=== PATIENT | male | born 1990 | race Caucasian/White ===

== ENCOUNTER 2017-05-18 08:09 | Emergency (ER) | payer MEDICAID ==
[2017-05-18] MEDS ORDERED: fentaNYL 100 MCG/2 ML SDV IVPUSH ONE ×2 (09:15→12:06)
[2017-05-18] MEDS ORDERED: Sodium Chloride 0.9% 1,000 ML IV SCH (09:15)
[2017-05-18] MEDS ORDERED: Ondansetron 4 MG/2 ML SDV IVPUSH ONE (09:18)
[2017-05-18 09:21] LABS: CHLORIDE,CL 105 mmol/L (98-107); SODIUM,NA 141 mmol/L (136-145)
--- NOTE | 2017-05-18 09:50 | EDM.PDOC ---
ED HPI GENERAL MEDICAL PROBLEM - General Chief Complaint: Gastrointestinal Problem Stated Complaint: RLQ abd pain Time Seen by Provider: 05/18/17 08:30 Source of Information: Reports: Patient History Limitations: Reports: No Limitations - History of Present Illness INITIAL COMMENTS - FREE TEXT/NARRATIVE: Patient is a 26-year-old who was seen in emergency room with chief complaint of right lower quadrant pain patient states that it woke him up this morning and has been constant to the right lower quadrant he had similar pain but not as intense about a months ago with a negative CAT scan at that time Onset: Today Duration: Hour(s): Location: Reports: Abdomen Quality: Reports: Sharp (Constant) Severity: Moderate Improves with: Reports: None Worsens with: Reports: Movement Context: Reports: Sick Contact Right Lower Abdominal Pain Score (Numeric/FACES): 9 - Related Data Allergies Allergy/AdvReac Type Severity Reaction Status Date / Time amoxicillin Allergy Hives Verified 05/18/17 08:11 cefazolin Allergy Hives Verified 05/18/17 08:11 Penicillins Allergy Hives Verified 05/18/17 08:11 Home Meds: Home Meds Acetaminophen/Diphenhydramine [Tylenol Pm Ex-Strength Caplet] 1 - 2 tab PO BEDTIME PRN 10/06/15 [History] Past Medical History Musculoskeletal History: Reports: Fracture Neurological History: Reports: Concussion Psychiatric History: Reports: Depression, PTSD - Past Surgical History HEENT Surgical History: Reports: Myringotomy w Tube(s), Tonsillectomy Musculoskeletal Surgical History: Reports: Other (See Below) Social & Family History - Tobacco Use Smoking Status *Q: Current Some Day Smoker Years of Tobacco use: 8 Packs/Tins Daily: 0.3 Second Hand Smoke Exposure: Yes - Caffeine Use Caffeine Use: Reports: Coffee, Energy Drinks, Soda Caffeine Use Comment: Drinks coffee more than energy drinks and pop. - Recreational Drug Use Recreational Drug Use: No ED ROS GENERAL - Review of Systems Review Of Systems: See Below Constitutional: Reports: Weight Loss HEENT: Reports: No Symptoms Respiratory: Reports: No Symptoms Cardiovascular: Reports: No Symptoms Endocrine: Reports: No Symptoms GI/Abdominal: Reports: No Symptoms : Reports: No Symptoms Musculoskeletal: Reports: No Symptoms Skin: Reports: No Symptoms Neurological: Reports: No Symptoms Psychiatric: Reports: No Symptoms Hematologic/Lymphatic: Reports: No Symptoms Immunologic: Reports: No Symptoms ED EXAM, GENERAL - Physical Exam Exam: See Below Exam Limited By: No Limitations General Appearance: Alert, WD/WN, Moderate Distress Eye Exam: Bilateral Eye: EOMI, PERRL Ears: Normal External Exam, Normal Canal, Hearing Grossly Normal, Normal TMs Nose: Normal Inspection, Normal Mucosa, No Blood Throat/Mouth: Normal Inspection, Normal Lips, Normal Teeth, Normal Gums, Normal Oropharynx, Normal Voice, No Airway Compromise Head: Atraumatic, Normocephalic Neck: Normal Inspection, Supple, Non-Tender, Full Range of Motion Respiratory/Chest: No Respiratory Distress, Lungs Clear, Normal Breath Sounds, No Accessory Muscle Use, Chest Non-Tender Cardiovascular: Normal Peripheral Pulses, Regular Rate, Rhythm, No Edema, No Gallop, No JVD, No Murmur, No Rub GI/Abdominal: Guarding (ruq), Rebound (RUQ), Tender (RUQ) Back Exam: Normal Inspection, Full Range of Motion, NT Extremities: Normal Inspection, Normal Range of Motion, Non-Tender, Normal Capillary Refill, No Pedal Edema Neurological: Alert, Oriented, CN II-XII Intact, Normal Cognition, Normal Reflexes Psychiatric: Normal Affect, Normal Mood Skin Exam: Warm, Dry, Intact, Normal Color, No Rash Course - Vital Signs Last Recorded V/S: Last Vital Signs Temp 97.9 F 05/18/17 08:13 Pulse 81 05/18/17 10:41 Resp 17 05/18/17 10:41 BP 128/70 05/18/17 10:41 Pulse Ox 99 05/18/17 10:41 - Orders/Labs/Meds Orders: Active Orders 24 hr Category Date Time Status Abdomen Pelvis w Cont [CT] Stat Exams 05/18/17 09:05 Taken Sodium Chloride 0.9% [Normal Saline] 1,000 ml Med 05/18/17 09:15 Active IV ASDIRECTED metroNIDAZOLE/Normal Saline [Flagyl 500 MG in NS 100 ML Med 05/18/17 11:04 Ordered ] 500 mg Premix Bag 1 bag IV ONETIME Medication Orders Sodium Chloride (Normal Saline) 1,000 mls @ 250 mls/hr IV ASDIRECTED KIRILL Last Admin: 05/18/17 09:11 Dose: 250 mls/hr Metronidazole 500 mg/ Premix 100 mls @ 100 mls/hr IV ONETIME ONE Stop: 05/18/17 12:03 Labs: Laboratory Tests 05/18/17 05/18/17 05/18/17 Range/Units 08:55 08:55 09:37 WBC 15.2 H (4.0-10.2) K/uL RBC 4.84 (4.33-5.41) M/uL Hgb 14.6 (13.1-16.8) g/dL Hct 41.8 (39.0-49.0) % MCV 86.4 D (84.0-98.0) fL MCH 30.2 (28.2-33.3) pg MCHC 34.9 (31.7-36.0) g/dL RDW 12.9 (11.2-14.1) % Plt Count 160 (150-350) K/uL Neut % (Auto) 71.0 (45.0-80.0) % Lymph % (Auto) 21.1 (10.0-50.0) % [place] % (Auto) 6.7 (2.0-14.0) % Eos % (Auto) 1.1 (0.0-5.0) % Baso % (Auto) 0.1 (0.0-2.0) % Neut # (Auto) 10.76 H (1.40-7.00) K/uL Lymph # (Auto) 3.20 (0.50-3.50) K/uL [place] # (Auto) 1.02 H (0.00-1.00) K/uL Eos # (Auto) 0.16 (0.00-0.50) K/uL Baso # (Auto) 0.02 (0.00-0.20) K/uL Sodium 141 (136-145) mmol/L Potassium 3.9 (3.5-5.1) mmol/L Chloride 105 (98-107) mmol/L Carbon Dioxide 26.5 (21.0-32.0) mmol/L BUN 19 H (7-18) mg/dL Creatinine 0.81 (0.51-1.17) mg/dL Est Cr Clr Drug Dosing 143.05 mL/min Estimated GFR (MDRD) > 60 mL/min Glucose 99 (74-106) mg/dL Calcium 9.1 (8.5-10.1) mg/dL Specimen Type Urincc Urine Color Yellow Urine Appearance Clear Urine pH 5.5 (5.0-9.0) Ur Specific Ackerman >= 1.030 (1.005-1.030) Urine Protein Negative (NEGATIVE) mg/dL Urine Glucose (UA) Negative (NEGATIVE) mg/dL Urine Ketones Negative (NEGATIVE) mg/dL Urine Occult Blood Trace-lysed H (NEGATIVE) Urine Nitrite Negative (NEGATIVE) Urine Bilirubin Negative (NEGATIVE) Urine Urobilinogen 0.2 (0.2-1.0) E.U./dL Ur Leukocyte Esterase Negative (NEGATIVE) Urine RBC 0-5 /HPF Urine WBC 0-5 /HPF Ur Epithelial Cells Rare /LPF Urine Bacteria Rare (NONE TO FEW) /HPF Meds: Medications Generic Name Dose Route Start Last Admin Trade Name Freq PRN Reason Stop Dose Admin Sodium Chloride 1,000 mls @ 250 mls/hr 05/18/17 09:15 05/18/17 09:11 Normal Saline IV 250 mls/hr ASDIRECTED KIRILL Administration Metronidazole 500 mg/ Premix 100 mls @ 100 mls/hr 05/18/17 11:04 IV 05/18/17 12:03 ONETIME ONE Discontinued Medications Generic Name Dose Route Start Last Admin Trade Name Freq PRN Reason Stop Dose Admin Fentanyl 50 mcg 05/18/17 09:15 05/18/17 09:27 Sublimaze IVPUSH 05/18/17 09:16 50 mcg ONETIME ONE Administration Iopamidol 100 ml 05/18/17 10:00 05/18/17 10:16 Isovue-300 (61%) IVPUSH 05/18/17 10:01 100 ml ONETIME ONE Administration Ondansetron HCl 4 mg 05/18/17 09:18 05/18/17 09:27 Zofran IVPUSH 05/18/17 09:19 4 mg ONETIME ONE Administration Departure - Departure Time of Disposition: 11:06 Disposition: DC/Tfer to Acute Hospital 02 Condition: Fair Clinical Impression: Appendicitis - Discharge Information Instructions: Abdominal Pain, Adult, [id number] Referrals: Sunshine Dang PA-C [Primary Care Provider] - Forms: ED Department Discharge Care Plan Goals: Patient transferred to [facility] via family will be admitted evaluating by surgeon for possible appendectomy - Problem List & Annotations (1) Abdominal pain SNOMED Code(s): 32097669 Code(s): R10.9 - UNSPECIFIED ABDOMINAL PAIN Status: Acute Current Visit: Yes - Problem List Review Problem List Initiated/Reviewed/Updated: Yes - My Orders Last 24 Hours: My Active Orders 05/18/17 09:05 Abdomen Pelvis w Cont [CT] Stat 05/18/17 09:15 Sodium Chloride 0.9% [Normal Saline] 1,000 ml IV ASDIRECTED 05/18/17 11:04 metroNIDAZOLE/Normal Saline [Flagyl 500 MG in NS 100 ML] 500 mg Premix Bag 1 bag IV ONETIME - Assessment/Plan Last 24 Hours: My Active Orders 05/18/17 09:05 Abdomen Pelvis w Cont [CT] Stat 05/18/17 09:15 Sodium Chloride 0.9% [Normal Saline] 1,000 ml IV ASDIRECTED 05/18/17 11:04 metroNIDAZOLE/Normal Saline [Flagyl 500 MG in NS 100 ML] 500 mg Premix Bag 1 bag IV ONETIME
[2017-05-18] MEDS ORDERED: Iopamidol 612 MG/ML 100 ML Bottle IVPUSH ONE (10:00)
[2017-05-18] MEDS ORDERED: metroNIDAZOLE/Normal Saline 500 MG in Premix Bag 1 BAG IV ONE (11:04)
[2017-05-18 13:57] VITALS: BP 114/70
== END 2017-05-18 12:13 ==
LOC: LL.ED 08:09
DX: K37 Unspecified appendicitis (principal); F43.10 Post-traumatic stress disorder, unspecified; F17.210 Nicotine dependence, cigarettes, uncomplicated; Z88.1 Allergy status to other antibiotic agents; Z88.0 Allergy status to penicillin; Z96.22 Myringotomy tube(s) status; Z90.89 Acquired absence of other organs
CPT/HCPCS: 36415; 74177; 80048; 81001; 85025; 96361; 96365; 96366; 96375; 96376; 99284; J2405; J3010; J7030; Q9967

== ENCOUNTER 2017-12-25 02:38 | Emergency (ER) | payer BC, MEDICAID ==
[2017-12-25 03:08] VITALS: BP 134/103
[2017-12-25] MEDS ORDERED: Levofloxacin 500 MG Tab PO ONE (03:21)
[2017-12-25] MEDS ORDERED: fentaNYL 100 MCG/2 ML SDV IM ONE (03:33)
--- NOTE | 2017-12-25 03:46 | EDM.PDOC ---
ED HPI GENERAL MEDICAL PROBLEM - General Chief Complaint: ENT Problem Stated Complaint: Right ear pain Time Seen by Provider: 12/25/17 03:00 Source of Information: Reports: Patient History Limitations: Reports: No Limitations - History of Present Illness INITIAL COMMENTS - FREE TEXT/NARRATIVE: Patient is a 27-year-old who was seen in the emergency room with chief complaint of right ear pain states it started suddenly once he arrived from [place] he was brought in by his father for evaluation of right ear pain Onset: Sudden Duration: Hour(s):, Getting Worse Location: Reports: Head (Right ear) Quality: Reports: Ache, Throbbing Severity: Moderate Improves with: Reports: Medication Worsens with: Reports: None Context: Reports: Other (Infection) Associated Symptoms: Reports: No Other Symptoms Right Ear Pain Score (Numeric/FACES): 10 - Related Data Allergies Allergy/AdvReac Type Severity Reaction Status Date / Time amoxicillin Allergy Hives Verified 12/25/17 02:44 cefazolin Allergy Hives Verified 12/25/17 02:44 cefprozil [From Cefzil] Allergy Hives Verified 12/25/17 02:44 Penicillins Allergy Hives Verified 12/25/17 02:44 Home Meds: Home Meds Acetaminophen/Diphenhydramine [Tylenol Pm Ex-Strength Caplet] 1 - 2 tab PO BEDTIME PRN 10/06/15 [History] Acetaminophen [Tylenol] 650 mg PO Q4HR PRN 12/25/17 [History] Levofloxacin [Levaquin] 500 mg PO DAILY 9 Days #9 tab 12/25/17 [Rx] fentaNYL Citrate/PF [Fentanyl 100 Mcg/2 ml Vial] 100 mcg IM ONETIME #1 ml [Rx] Past Medical History - Past Health History Medical/Surgical History: Denies Medical/Surgical History Musculoskeletal History: Reports: Fracture Neurological History: Reports: Concussion Psychiatric History: Reports: Depression, PTSD - Past Surgical History HEENT Surgical History: Reports: Myringotomy w Tube(s), Tonsillectomy Musculoskeletal Surgical History: Reports: Other (See Below) Social & Family History - Tobacco Use Smoking Status *Q: Current Every Day Smoker Years of Tobacco use: 10 Packs/Tins Daily: 0.2 Second Hand Smoke Exposure: No - Caffeine Use Caffeine Use: Reports: Coffee, Energy Drinks, Soda Caffeine Use Comment: Drinks coffee more than energy drinks and pop. - Recreational Drug Use Recreational Drug Use: No ED ROS ENT - Review of Systems Review Of Systems: See Below Constitutional: Reports: No Symptoms HEENT: Reports: Ear Pain Respiratory: Reports: No Symptoms Cardiovascular: Reports: No Symptoms Endocrine: Reports: No Symptoms GI/Abdominal: Reports: No Symptoms : Reports: No Symptoms Musculoskeletal: Reports: No Symptoms Skin: Reports: No Symptoms Neurological: Reports: No Symptoms Psychiatric: Reports: No Symptoms ED EXAM, ENT - Physical Exam Exam: See Below Exam Limited By: No Limitations General Appearance: Alert, WD/WN, No Apparent Distress Ears: Normal External Exam, Normal Canal, Hearing Grossly Normal, Normal TMs Nose: Normal Inspection, Normal Mucousa, No Blood Mouth/Throat: Normal Inspection, Normal Gums, Normal Lips, Normal Oropharynx, Normal Teeth Head: Atraumatic, Normocephalic Neck: Normal Inspection, Supple, Non-Tender, Full Range of Motion Respiratory/Chest: No Respiratory Distress, Lungs Clear, Normal Breath Sounds, No Accessory Muscle Use, Chest Non-Tender Cardiovascular: Normal Peripheral Pulses, Regular Rate, Rhythm, No Edema, No Gallop, No JVD, No Murmur, No Rub GI/Abdominal: Normal Bowel Sounds, Soft, Non-Tender, No Organomegaly, No Distention, No Abnormal Bruit, No Mass (Male) Exam: Deferred Rectal (Males) Exam: Deferred Back: Normal Inspection, Full Range of Motion Extremities: Normal Inspection, Normal Range of Motion, Non-Tender, No Pedal Edema, Normal Capillary Refill Neurological: Alert, Oriented, CN II-XII Intact, Normal Cognition, Normal Gait, Normal Reflexes, No Motor/Sensory Deficits Psychiatric: Normal Affect, Normal Mood Skin: Warm, Dry, Intact, Normal Color, No Rash Course - Vital Signs Last Recorded V/S: Last Vital Signs Temp 98.5 F 12/25/17 02:45 Pulse 70 12/25/17 02:45 Resp 22 H 12/25/17 02:45 BP 134/103 H 12/25/17 02:45 Pulse Ox 96 12/25/17 02:45 - Orders/Labs/Meds Meds: Medications Discontinued Medications Generic Name Dose Route Start Last Admin Trade Name Freq PRN Reason Stop Dose Admin Fentanyl 100 mcg 12/25/17 03:33 12/25/17 03:37 Sublimaze IM 03/17/18 03:34 100 mcg ONETIME ONE Administration Levofloxacin 500 mg 12/25/17 03:21 12/25/17 03:27 Levaquin PO 12/25/17 03:22 500 mg ONETIME ONE Administration Departure - Departure Time of Disposition: 03:49 Disposition: Home, Self-Care 01 Condition: Fair Clinical Impression: Otitis media Qualifiers: Otitis media type: unspecified Chronicity: acute Qualified Code(s): H66.90 - Otitis media, unspecified, unspecified ear - Discharge Information Prescriptions: fentaNYL Citrate/PF [Fentanyl 100 Mcg/2 ml Vial] 100 mcg IM ONETIME #1 ml Levofloxacin [Levaquin] 500 mg PO Q48H 9 Days #9 tab Levofloxacin [Levaquin] 500 mg PO DAILY 9 Days #9 tab Instructions: Otitis Media, Adult, [id number] Referrals: Sunshine Dang PA-C [Primary Care Provider] - Care Plan Goals: Patient was given Levaquin in the ER and fentanyl for pain Levaquin was ordered terminal care for continuation of thought of therapy 1 tablet a day for 9 days
== END 2017-12-25 04:15 | disposition home or self-care (01) ==
LOC: LL.ED 02:38
DX: H66.91 Otitis media, unspecified, right ear (principal); F17.210 Nicotine dependence, cigarettes, uncomplicated; Z79.899 Other long term (current) drug therapy; Z88.1 Allergy status to other antibiotic agents; Z88.0 Allergy status to penicillin; Z88.8 Allergy status to other drugs, medicaments and biological substances
CPT/HCPCS: 96372; 99283; A9270-GY; J3010

== ENCOUNTER 2021-01-04 18:01 | Emergency (ER) | payer BC ==
--- NOTE | 2021-01-04 18:24 | EDM.PDOC ---
ED HPI GENERAL MEDICAL PROBLEM - General Chief Complaint: Head Injury Stated Complaint: head injury Time Seen by Provider: 01/04/21 18:10 Source of Information: Reports: Patient, Family History Limitations: Reports: No Limitations - History of Present Illness INITIAL COMMENTS - FREE TEXT/NARRATIVE: He is brought to the ED by private vehicle for evaluation of a closed head injur y. He was working on a plow for a side by side and the plow came loose falling about six inches and striking him on the right side of the forehead. He doesn't know if he lost consciousness. Injury was about one hour ago. Positive dizziness. Vision somewhat blurred at times. Positive nausea. One episode of vomiting. No slurred speech. Walking unsteadily per . Positive headache. No neck pain. No chest pain. No shortness of breath or cough. Headache Pain Score (Numeric/FACES): 4 - Related Data Allergies Allergy/AdvReac Type Severity Reaction Status Date / Time amoxicillin Allergy Hives Verified 01/04/21 18:06 cefazolin Allergy Hives Verified 01/04/21 18:06 cefprozil [From Cefzil] Allergy Hives Verified 01/04/21 18:06 Penicillins Allergy Hives Verified 01/04/21 18:06 Home Meds: Home Meds Acetaminophen [Tylenol] 650 mg PO Q4HR PRN 12/25/17 [History] Past Medical History - Past Health History Medical/Surgical History: Denies Medical/Surgical History Musculoskeletal History: Reports: Fracture Neurological History: Reports: Concussion Psychiatric History: Reports: Depression, PTSD - Past Surgical History HEENT Surgical History: Reports: Myringotomy w Tube(s), Tonsillectomy Musculoskeletal Surgical History: Reports: Other (See Below) Social & Family History - Caffeine Use Caffeine Use: Reports: Coffee, Energy Drinks, Soda Caffeine Use Comment: Drinks coffee more than energy drinks and pop. ED ROS GENERAL - Review of Systems Review Of Systems: See Below Constitutional: Denies: Fever, Chills HEENT: Reports: Vision Change. Denies: Ear Pain, Nosebleed, Rhinitis Respiratory: Denies: Shortness of Breath, Cough Cardiovascular: Denies: Chest Pain, Palpitations GI/Abdominal: Reports: Nausea, Vomiting. Denies: Abdominal Pain Musculoskeletal: Denies: Neck Pain Skin: Reports: No Symptoms Neurological: Reports: Confusion, Dizziness, Headache, Difficulty Walking. Denies: Numbness, Tingling, Change in Speech Psychiatric: Denies: Anxiety, Depression ED EXAM, HEAD INJURY - Physical Exam Exam: See Below Exam Limited By: No Limitations General Appearance: Alert, WD/WN, No Apparent Distress Head: Atraumatic, Normocephalic, Other (Moderate tenderness in the right forehead.). No: Golden's Sign Eyes: Bilateral Eye: EOMI, PERRL Ears: Normal External Exam, Normal Canal, Hearing Grossly Normal, Normal TMs Nose: Normal Inspection, Normal Mucousa, No Blood. No: Clear Rhinorrhea, Nasal Discharge Throat/Mouth: Normal Inspection, Normal Teeth, Normal Oropharynx Neck: Non-Tender Respiratory: No Respiratory Distress, Lungs Clear, Normal Breath Sounds Cardiovascular: Regular Rate, Rhythm, No Murmur Neurologic: digital campaign manager II-XII nml As Tested, No Motor/Sensory Deficits, Alert, Normal Mood/Affect, Oriented x 3, Other (Normal speech. Uanble to count backward by 7 or 3. Normal cerebellar signs.) - Eden Coma Score Best Eye Response (Eden): (4) Open Spontaneously Best Verbal Response (Eden): (5) Oriented Best Motor Response (Carl): (6) Obeys Commands Carl Total: 14 Course - Vital Signs Text/Narrative:: CT scan of the head is negative for acute bleed. Discussed concussion and signs of closed head injury. Will discharge with zofran for the nausea. Tylenol and/or advil as needed for the headache. No work until symptoms improve, and no heavy exertion for 1 week. Last Recorded V/S: Last Vital Signs Temp 36.6 C 01/04/21 18:10 Pulse 79 01/04/21 18:10 Resp 19 01/04/21 18:10 BP 123/83 01/04/21 18:10 Pulse Ox 98 01/04/21 18:10 - Orders/Labs/Meds Orders: Active Orders 24 hr Category Date Time Status Head wo Cont [CT] Stat Exams 01/04/21 18:18 Taken Departure - Departure Time of Disposition: 19:16 Disposition: Home, Self-Care 01 Condition: Good Clinical Impression: Concussion injury of brain - Discharge Information *PRESCRIPTION DRUG MONITORING PROGRAM REVIEWED*: Not Applicable *COPY OF PRESCRIPTION DRUG MONITORING REPORT IN PATIENT ALIN: Not Applicable Instructions: Head Injury, Adult Referrals: Deborah Briceno PA-C [Primary Care Provider] - Forms: ED Department Discharge Additional Instructions: Monitor for signs of closed head injury. Notify the ED if symptoms are worsening. Zofran every 6 hours as needed for nausea. Tylenol and.or advil as needed for headache. No work until symptoms improve. No heavy exertion for 1 week. Sepsis Event Note (ED) - Focused Exam Vital Signs: Vital Signs Temp Pulse Resp BP Pulse Ox 01/04/21 18:10 36.6 C 79 19 123/83 98 - Problem List & Annotations (1) Concussion injury of brain SNOMED Code(s): 395859621 Code(s): S06.0X9A - CONCUSSION W LOSS OF CONSCIOUSNESS OF UNSP DURATION, INIT Status: Acute Current Visit: Yes - My Orders Last 24 Hours: My Active Orders 01/04/21 18:18 Head wo Cont [CT] Stat - Assessment/Plan Last 24 Hours: My Active Orders 01/04/21 18:18 Head wo Cont [CT] Stat Plan: Monitor for signs of closed head injury. Notify the ED if symptoms are worsening. Zofran every 6 hours as needed for nausea. Tylenol and.or advil as needed for headache. No work until symptoms improve. No heavy exertion for 1 week.
[2021-01-04 18:53] VITALS: BP 123/83; PULSE 79
== END 2021-01-04 19:30 | disposition home or self-care (01) ==
LOC: LL.ED 18:01
DX: S06.0X9A Concussion with loss of consciousness of unspecified duration, initial encounter (principal); Z88.0 Allergy status to penicillin; Z88.1 Allergy status to other antibiotic agents; W22.8XXA Striking against or struck by other objects, initial encounter
CPT/HCPCS: 70450; 99283; 99284-25

== ENCOUNTER 2022-10-12 20:38 | Emergency (ER) | payer BC, OTHER ==
[2022-10-12 20:46] VITALS: BP 150/73; PULSE 85
[2022-10-12] MEDS ORDERED: Ketorolac 30 MG/ML SDV IM ONE (20:56)
== END 2022-10-12 22:00 | disposition home or self-care (01) ==
LOC: LL.ED 20:38
DX: S83.32XA Tear of articular cartilage of left knee, current, initial encounter (principal); Z88.0 Allergy status to penicillin; Z88.1 Allergy status to other antibiotic agents; W01.0XXA Fall on same level from slipping, tripping and stumbling without subsequent striking against object, initial encounter
CPT/HCPCS: 73562; 96372; 99283; J1885

== ENCOUNTER 2023-04-12 21:19 | Emergency (ER) | payer BC ==
[2023-04-12 21:29] VITALS: BP 132/87; PULSE 103
== END 2023-04-12 22:55 | disposition home or self-care (01) ==
LOC: LL.ED 21:19
DX: S69.91XA Unspecified injury of right wrist, hand and finger(s), initial encounter (principal); Z88.0 Allergy status to penicillin; Z88.8 Allergy status to other drugs, medicaments and biological substances; W18.30XA Fall on same level, unspecified, initial encounter
CPT/HCPCS: 73110-RT; 99283

== ENCOUNTER 2024-06-06 12:53 | Emergency (ER) | payer OTHER, BC ==
[2024-06-06 13:02] VITALS: BP 138/87; PULSE 81
== END 2024-06-06 13:25 | disposition home or self-care (01) ==
LOC: LL.ED 12:53
DX: S09.90XA Unspecified injury of head, initial encounter (principal); S00.03XA Contusion of scalp, initial encounter; Z88.0 Allergy status to penicillin; Z88.8 Allergy status to other drugs, medicaments and biological substances; Z79.899 Other long term (current) drug therapy; W20.8XXA Other cause of strike by thrown, projected or falling object, initial encounter
CPT/HCPCS: 99283